=== PATIENT | female | born 1990 | race Caucasian/White ===

== ENCOUNTER 2020-10-03 19:35 | Emergency (ER) | payer MEDICAID, OTHER ==
[~2020-10-03] VITALS: Ht 167.6 cm; Wt 70.3 kg
[2020-10-03] MEDS ORDERED: KETOROLAC TROMETHAMINE 60 MG INJ IM ONE ×2 (20:24→20:30)
[2020-10-03 20:40] LABS: *URINE HCG, QUAL NEGATIVE (NEGATIVE)
--- NOTE | 2020-10-03 20:53 | NUR ---
[facility] IM ADMINISTERED/URINE SENT/X-RAYS COMPLETED. PT POSITIONED FOR COMFORT.
--- NOTE | 2020-10-03 22:16 | NUR ---
MSE COMPLETED, PT HAD HRAD C-COLLAR REMOVED, ACI/RX X1/COPY OF XRAY/EKG GIVEN. PT GOT DRESSED, AMBULATED W/O DIFF/TOOK ALL BELONGINGS.
[2020-10-03 22:18] VITALS: BP 114/75
== END 2020-10-03 22:18 | disposition home or self-care (01) ==
LOC: ER 19:37
DX: M54.5 Low back pain (principal); M54.2 Cervicalgia; R07.89 Other chest pain; V43.52XA Car driver injured in collision with other type car in traffic accident, initial encounter; Y92.410 Unspecified street and highway as the place of occurrence of the external cause
CPT/HCPCS: 71045; 72050; 84703; 93005; 96372; 99285; J1885; A4663

== ENCOUNTER 2021-03-26 16:52 | Emergency (ER) | payer OTHER ==
[~2021-03-26] VITALS: Ht 167.6 cm; Wt 65.8 kg
[2021-03-26] MEDS ORDERED: PROM118S5 PO (17:16)
[2021-03-26] MEDS ORDERED: AZIT250T PO (17:17)
--- NOTE | 2021-03-26 17:52 | NUR ---
Patient discharged to home in stable condition. Written and verbal after care instructions given. Patient verbalizes understanding of instructions. Stressed follow up or return to ER for worsening s/s.
== END 2021-03-26 17:53 | disposition home or self-care (01) ==
LOC: ER 16:53
DX: J06.9 Acute upper respiratory infection, unspecified (principal); Z20.822 Contact with and (suspected) exposure to COVID-19
CPT/HCPCS: A4663

== ENCOUNTER 2021-06-19 21:06 | Emergency (ER) | payer OTHER ==
[~2021-06-19] VITALS: Ht 167.6 cm; Wt 70.3 kg
[~2021-06-19 21:06] MED LIST: AZIT250T PO; PROM118S5 PO
[2021-06-19] MEDS ORDERED: LORAZEPAM 2 MG/1 ML VIAL IV ONE (21:45)
[2021-06-19] MEDS ORDERED: LORAZEPAM 2 MG/1 ML VIAL ONE (22:16)
[2021-06-19 22:19] LABS: CREATININE 0.8 mg/dL (0.6-1.3); POTASSIUM 3.7 mmol/L (3.5-5.1)
[2021-06-19 22:21] LABS: HEMATOCRIT 41.3 % (31.2-41.9); MEAN CORPUSCULAR HEMOGLOBIN 31.2 uug (24.7-32.8); MEAN CORPUSCULAR VOLUME 90.4 fL (75.5-95.3); PLATELET COUNT (AUTO) 265 K/uL (179-408)
[2021-06-19] MEDS ORDERED: IV NORMAL SALINE 1000 ML BAG IV ONE (23:00)
[2021-06-19 23:11] LABS: MAGNESIUM 2.3 mg/dL (1.8-2.4)
[2021-06-19] MEDS ORDERED: ALPR0.255 PO (23:41)
--- NOTE | 2021-06-19 23:50 | NUR ---
Patient states "I feel better now."
--- NOTE | 2021-06-19 23:58 | NUR ---
IV removed. Catheter intact and site benign. Pressure and 4x4 gauze applied to site. No bleeding noted.
[2021-06-20 00:19] VITALS: BP 125/77
== END 2021-06-20 00:20 | disposition home or self-care (01) ==
LOC: ER 21:07
DX: R06.00 Dyspnea, unspecified (principal); F41.9 Anxiety disorder, unspecified; Z20.822 Contact with and (suspected) exposure to COVID-19; J45.909 Unspecified asthma, uncomplicated; E87.2 Acidosis; R94.31 Abnormal electrocardiogram [ECG] [EKG]
CPT/HCPCS: 36415; 71045; 80048; 83690; 83735; 83880; 84484; 84702; 85025; 87426; 93005; 96361; 96374; 99285; J2060; 70030-TC; A4663; J7030

== ENCOUNTER 2021-09-09 19:23 | Emergency (ER) | payer OTHER ==
[~2021-09-09] VITALS: Ht 167.6 cm; Wt 70.3 kg
[~2021-09-09 19:23] MED LIST changes: +ALPR0.255 PO
--- NOTE | 2021-09-09 20:46 | NUR ---
Patient out of unit for x ray via gurny.
--- NOTE | 2021-09-09 20:52 | NUR ---
Patient back from x ray with no distress noted.
[2021-09-09] MEDS ORDERED: HYDR-4209 PO (21:11)
--- NOTE | 2021-09-09 21:25 | NUR ---
Crutches dispensed. Pt instructed on proper use of crutches. Patient able to demonstrate correct use of crutches.
[2021-09-09 21:27] VITALS: BP 129/66
== END 2021-09-09 21:27 | disposition home or self-care (01) ==
LOC: ER 19:24
DX: S97.81XA Crushing injury of right foot, initial encounter (principal); W20.8XXA Other cause of strike by thrown, projected or falling object, initial encounter; Y92.89 Other specified places as the place of occurrence of the external cause
CPT/HCPCS: 73630; A4663

== ENCOUNTER 2022-01-01 14:53 | Emergency (ER) | payer OTHER ==
[~2022-01-01] VITALS: Ht 167.6 cm; Wt 65.8 kg
[~2022-01-01 14:53] MED LIST changes: +HYDR-4209 PO
--- NOTE | 2022-01-01 15:15 | NUR ---
Pt stated she got her right hand caught in doorframe and it was struck by closing door. c/o pain and little finger numbness. distal PMS intact, cap refill < 2 sec. Pt denies CP, SOB, dizziness, n/v, no other complaints, no distress noted.
--- NOTE | 2022-01-01 15:20 | NUR ---
Applied ice pack to right hand/wrist.
[2022-01-01] MEDS ORDERED: IBUP-1955 PO (15:30)
[2022-01-01] MEDS ORDERED: HYDR-4275 PO (15:30)
--- NOTE | 2022-01-01 16:40 | NUR ---
Reapplied splint with more wrist extension, PMS intact cap refill < 2 sec.
== END 2022-01-01 16:50 | disposition home or self-care (01) ==
LOC: ER 14:53
DX: S67.21XA Crushing injury of right hand, initial encounter (principal); W23.0XXA Caught, crushed, jammed, or pinched between moving objects, initial encounter; Y92.019 Unspecified place in single-family (private) house as the place of occurrence of the external cause; J45.909 Unspecified asthma, uncomplicated
CPT/HCPCS: 73130; A4663

== ENCOUNTER 2022-06-12 17:56 | Emergency (ER) | payer OTHER ==
[~2022-06-12] VITALS: Ht 167.6 cm; Wt 71.7 kg
[~2022-06-12 17:56] MED LIST changes: -ALPR0.255 PO; -AZIT250T PO; -HYDR-4209 PO; +HYDR-4275 PO; +IBUP-1955 PO; -PROM118S5 PO
[2022-06-12 18:53] LABS: HEMATOCRIT 39.2 % (31.2-41.9); MEAN CORPUSCULAR VOLUME 89.9 fL (75.5-95.3); PLATELET COUNT (AUTO) 258 K/uL (179-408)
[2022-06-12 19:00] LABS: CARBON DIOXIDE 29 mmol/L (21-32); CHLORIDE 104 mmol/L (98-107); CREATININE 0.6 mg/dL (0.6-1.3); GLUCOSE 88 mg/dL (74-106); POTASSIUM 3.9 mmol/L (3.5-5.1); UREA NITROGEN, BLOOD 10 mg/dL (7-18)
--- NOTE | 2022-06-12 19:28 | NUR ---
Hands off report given to Guido cat Rn night.
[2022-06-12] MEDS ORDERED: KETOROLAC TROMETHAMINE 60 MG INJ IM ONE (19:30)
--- NOTE | 2022-06-12 19:30 | NUR ---
A> Pt's airway is patent, talking in full sentences. B>Breathing is even and non-labored at 16. Saturating 99% on room air with face mask. No active C>CP at this time. Pt has no edema, voiding adequately and drinking well. Capp refill <2 secs. Skin is pink, warm and dry. EKG done; NSR at 65. Troponin is negative. Pt have had CP for the last 2 weeks. Mostly on her lap top. Her pain feels tightness under her left breast and on her left shoulder. Pain lasts for 30 mins or so and gets worse when she has some anxiety. Denies worsening after meals. D> Pt's GCS remained 15/15. E>Pt has no wounds. Afebrile 97.7F
[2022-06-12] MEDS ORDERED: KETOROLAC TROMETHAMINE 30 MG INJ ONE ×2 (20:06→20:10)
[2022-06-12 21:48] LABS: *URINE HCG, QUAL NEGATIVE (NEGATIVE)
--- NOTE | 2022-06-12 22:00 | NUR ---
Jazmin dunlap in [facility] - 06/13/22 at 0337 by [id number] PATIENT TRANSFERED TO [facility] VIA [facility] WITH NO DISTRESS NOTED.
[2022-06-13 03:37] VITALS: BP 128/77
== END 2022-06-12 22:00 | disposition home or self-care (01) ==
LOC: ER 17:56
DX: R07.9 Chest pain, unspecified (principal); F41.9 Anxiety disorder, unspecified
CPT/HCPCS: 99285; 71045; 80048; 84703; 85025; 85379; 84484 ×2; 36415; 93005 ×2; 96372; J1885 ×2; A4663

== ENCOUNTER 2022-10-16 18:18 | Emergency (ER) | payer OTHER ==
[~2022-10-16] VITALS: Ht 167.6 cm; Wt 65.8 kg
--- NOTE | 2022-10-16 18:25 | NUR ---
Pt ambulatory to room 3. Pt c/o pain to left arm, states she sustained the injury while walking her dog yesterday, states the dog suddently pulled the leash and pulled her arm.
[2022-10-16] MEDS ORDERED: HYDR-4209 PO (19:06)
[2022-10-16 20:47] VITALS: BP 120/77
== END 2022-10-16 20:47 | disposition home or self-care (01) ==
LOC: ER 18:18
DX: S50.02XA Contusion of left elbow, initial encounter (principal); W01.0XXA Fall on same level from slipping, tripping and stumbling without subsequent striking against object, initial encounter; Y93.K1 Activity, walking an animal; Y92.89 Other specified places as the place of occurrence of the external cause
CPT/HCPCS: 73080; A4663

== ENCOUNTER 2022-10-21 20:26 | Emergency (ER) | payer OTHER ==
[~2022-10-21] VITALS: Ht 167.6 cm; Wt 65.8 kg
[~2022-10-21 20:26] MED LIST changes: +HYDR-4209 PO
--- NOTE | 2022-10-21 20:39 | NUR ---
After being triaged, patient was placed back in the waiting room due to no beds avialable in the ER.
--- NOTE | 2022-10-21 23:10 | NUR ---
seen and examined by Dr. Berrios
[2022-10-21] MEDS ORDERED: ALBU8HFA4 INH (23:26)
[2022-10-21] MEDS ORDERED: PROM118S5 PO ×2 (23:26→23:49)
[2022-10-21] MEDS ORDERED: ALBU18HF2 INH (23:49)
--- NOTE | 2022-10-21 23:55 | NUR ---
Patient discharged to home in stable condition with mother taking patient home. Written and verbal after care instructions given. Patient verbalizes understanding of instructions. Stressed follow up or return to ER for worsening s/s.
[2022-10-22 00:01] VITALS: BP 110/76
== END 2022-10-22 00:02 | disposition home or self-care (01) ==
LOC: ER 20:26
DX: J20.9 Acute bronchitis, unspecified (principal); J06.9 Acute upper respiratory infection, unspecified; Z20.822 Contact with and (suspected) exposure to COVID-19
CPT/HCPCS: 87400; A4663

== ENCOUNTER 2023-07-24 00:43 | Emergency (ER) | payer OTHER ==
[~2023-07-24] VITALS: Ht 167.6 cm; Wt 76.2 kg
[~2023-07-24 00:43] MED LIST changes: +ALBU18HF2 INH; +PROM118S5 PO
[2023-07-24] MEDS ORDERED: HYDROCODONE/APAP 5-325MG TABLET ONE (01:37)
[2023-07-24] MEDS ORDERED: HYDROCODONE/APAP 5-325MG TABLET PO ONE (01:45)
[2023-07-24] MEDS ORDERED: AZIT250T PO (01:54)
[2023-07-24] MEDS ORDERED: ALBU8.5H8 IH (01:54)
[2023-07-24] MEDS ORDERED: HYDR-4209 PO (02:00)
[2023-07-24] MEDS ORDERED: AZITHROMYCIN 250 MG TABLET PO ONE (02:00)
[2023-07-24] MEDS ORDERED: AZITHROMYCIN 250 MG TABLET ONE (02:01)
[2023-07-24 02:07] VITALS: BP 106/66; TEMP 98.5; O2SAT 98
== END 2023-07-24 02:09 | disposition home or self-care (01) ==
LOC: ER 00:47
DX: R06.09 Other forms of dyspnea (principal); R07.89 Other chest pain; J45.909 Unspecified asthma, uncomplicated; Z79.1 Long term (current) use of non-steroidal anti-inflammatories (NSAID); Z79.899 Other long term (current) drug therapy
CPT/HCPCS: 71045; 93005; A4663; Q0144